=== PATIENT | male | born 1950 | race Caucasian/White ===

== ENCOUNTER → 2016-11-10 | Day surgery (SDC) | payer MEDICARE, BC ==
[2014-01-25 06:31] VITALS: BP 138/83
[~2016-11-10] MED LIST: COLACE 100100 MG/CAP PO; GOOD SENSE ASPI81 M1 PO; TYLENOL 325MG325 MG PO; ULTRAM 50MG TAB50 MG PO
== END ==
LOC: MSO 07:13
DX: Z12.11 Encounter for screening for malignant neoplasm of colon (principal); Z86.010 Personal history of colon polyps; E66.01 Morbid (severe) obesity due to excess calories; K57.30 Diverticulosis of large intestine without perforation or abscess without bleeding
CPT/HCPCS: 00810; J3010; J7120

== ENCOUNTER → 2019-05-26 | Outpatient (CLI) | payer MEDICARE, BC ==
[2014-01-25 06:31] VITALS: BP 138/83
== END ==
LOC: RAD 08:24
DX: R94.5 Abnormal results of liver function studies (principal); R74.8 Abnormal levels of other serum enzymes

== ENCOUNTER 2020-11-09 09:52 | Outpatient (RCR) | payer MEDICARE, BC ==
[2014-01-25 06:31] VITALS: BP 138/83
== END 2020-11-21 17:00 | disposition home or self-care (01) ==
LOC: PT 09:52
DX: M25.561 Pain in right knee (principal); G89.29 Other chronic pain

== ENCOUNTER → 2023-05-27 | Day surgery (SDC) | payer MEDICARE, BC | END | disposition home or self-care (01) | LOC: MSO 10:12 | DX: H25.812 Combined forms of age-related cataract, left eye (principal) | CPT/HCPCS: 00142; J0171; J2250; V2632 ==

== ENCOUNTER → 2023-06-23 | Day surgery (SDC) | payer MEDICARE, BC | END | disposition home or self-care (01) | LOC: MSO 10:15 | DX: H25.811 Combined forms of age-related cataract, right eye (principal) | CPT/HCPCS: 00142; J0171; J2250; V2632 ==